=== PATIENT | male | born 1955 | race African-American/Black ===

== ENCOUNTER 2020-11-18 19:06 | Emergency (ER) | payer OTHER, MEDICARE ==
[~2020-11-18 19:06] MED LIST: ASPIRIN325 MG PO; LOPRESSOR50 MG PO; NEURONTIN300 MG PO; NORCO 5-325 TA1 EACH PO; OMEPRAZOLE40 MG PO; PLAVIX75 MG PO; PRAVACHOL40 MG PO; PRINIVIL20 MG PO; TYLENOL #31 EACH PO
[2020-11-18 22:07] LABS: BASOPHIL 0.5 % (0-2); EOSINOPHIL 2.2 % (0-7); HCT 37.1 % (42.0-52.0); HGB 12.1 g/dl (13.2-18.0); LYMPHOCYTE 29.5 % (15-48); MCH 29.7 pg (25.0-31.0); MCHC 32.6 g/dL (32.0-36.0); MCV 91.2 fL (78.0-100.0); MONOCYTE 11.5 % (0-12); MPV 10.1 fL (6.0-9.5); NEUTROPHIL 55.9 % (41-80); NRBC 0; PLT 241 K/uL (150-400); RBC 4.07 M/uL (4.70-6.00); RDW 13.7 % (11.5-14.0); WBC 8.3 K/uL (4.0-10.5)
[2020-11-18 22:20] LABS: ALBUMIN 3.4 g/dL (3.4-5.0); BILIRUBIN - TOTAL 0.2 mg/dL (0.2-1.0); BUN/CREAT RATIO (CALC) 7.8 RATIO; CREATININE 1.15 mg/dL (0.67-1.17); GLOBULIN (CALCULATION) 4.1 g/dL; POTASSIUM 4.3 mmol/L (3.5-5.1); TOTAL PROTEIN 7.5 g/dL (6.4-8.2)
[2020-11-18 22:28] LABS: PRO-BNP 11 pg/mL (<125)
[2020-11-19] MEDS ORDERED: ELIQUIS5 MG PO (03:59)
== END 2020-11-19 04:28 | disposition home or self-care (01) ==
LOC: FER 19:06
PROVIDERS: Emergency Medicine
DX: I26.99 Other pulmonary embolism without acute cor pulmonale (principal); I25.10 Atherosclerotic heart disease of native coronary artery without angina pectoris; Z95.5 Presence of coronary angioplasty implant and graft; Z79.02 Long term (current) use of antithrombotics/antiplatelets; Z79.899 Other long term (current) drug therapy; Z82.49 Family history of ischemic heart disease and other diseases of the circulatory system; Z20.822 Contact with and (suspected) exposure to COVID-19
CPT/HCPCS: 36415; 71045; 71275; 73030; 80053; 83880; 84484; 85025; 85379; 93005; J7030; Q9967; U0002

== ENCOUNTER → 2021-06-17 | Day surgery (SDC) | payer OTHER ==
[~2021-06-17] VITALS: Ht 188 cm; Wt 99.8 kg
[~2021-06-17] MED LIST changes: +ELIQUIS5 MG PO; +ONE-DAILY MULT1 EACH PO; -PRAVACHOL40 MG PO; +Pravachol PO
--- NOTE | 2021-06-17 13:18 | NUR ---
SPOKE WITH HALLIE AT DR. LOW OFFICE, SHE WILL CALL PT AND GIVE HIS 2WK PHONE CALL FOLLOW UP DATE AND TIME
== END | disposition home or self-care (01) ==
LOC: FAS 06-01 13:15
DX: D12.3 Benign neoplasm of transverse colon (principal); K57.30 Diverticulosis of large intestine without perforation or abscess without bleeding; K29.50 Unspecified chronic gastritis without bleeding; K21.9 Gastro-esophageal reflux disease without esophagitis; D64.9 Anemia, unspecified; I10 Essential (primary) hypertension; E78.5 Hyperlipidemia, unspecified; M19.90 Unspecified osteoarthritis, unspecified site; J45.909 Unspecified asthma, uncomplicated; Z79.82 Long term (current) use of aspirin; Z79.01 Long term (current) use of anticoagulants; Z79.899 Other long term (current) drug therapy
CPT/HCPCS: J2250; J2704; J7120